=== PATIENT | female | born 2005 | race Two or more races ===

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

== ENCOUNTER 2023-04-01 05:05 | Emergency (ER) | payer OTHER ==
[~2023-04-01] VITALS: Ht 149.9 cm; Wt 49.9 kg
[2023-04-01 05:21] VITALS: BP 112/78
== END 2023-04-01 06:38 | disposition home or self-care (01) ==
LOC: ER 05:05
DX: S99.912A Unspecified injury of left ankle, initial encounter (principal); X50.1XXA Overexertion from prolonged static or awkward postures, initial encounter
CPT/HCPCS: 73600; 99283-25; A9270